=== PATIENT | male | born 1970 | race Caucasian/White ===

== ENCOUNTER 2021-12-24 11:06 | Observation (INO) | payer BC ==
[2021-12-24] MEDS ORDERED: Aspirin Chewable 81 MG TAB ONE (11:26)
[2021-12-24 11:52] LABS: #Eosinphils 0.1 thou/uL (0.0-0.7); #Lymphocytes 3.1 thou/uL (1.20-3.40); #Monocytes 1.1 thou/uL (0.11-0.59); #Neutrophils 7.5 thou/uL (1.40-6.50); %Basophils 0.1 % (0.0-1.0); %Eosinophils 0.9 % (0.0-10.0); %Lymphocytes 26.1 % (21.0-51.0); %Monocytes 9.5 % (0.0-10.0); %Neutrophils 63.3 % (42.0-75.0); Hemoglobin 20.1 g/dL (14.0-18.0); Mean Corpuscular HGB CONC 33.6 g/dL (32.0-36.0); Mean Corpuscular Hemoglobin 32.8 pg (27.0-31.0); Mean Corpuscular Volume 97.6 fL (78.0-98.0); Mean Platelet Volume 7.1 fL (7.4-10.4); Platelet Count 298 thou/uL (130-400); RBC Distribution Width 12.6 % (11.5-14.5); Red Blood Cell (RBC) Count 6.13 mill/uL (4.70-6.10); White Blood Cell (WBC) Count 11.8 thou/uL (4.8-10.8)
[2021-12-24 11:59] LABS: ALT (SGPT) 52 U/L (8-55); AST (SGOT) 35 U/L (5-34); Albumin 4.9 g/dL (3.5-5.0); Alkaline Phosphatase 74 U/L (40-110); Anion Gap 17 mmol/L (10-20); BUN (Urea Nitrogen) 17 mg/dL (8.4-25.7); Bilirubin, Total 1.1 mg/dL (0.2-1.2); Calc. Creatinine Clearance 0 mL/min (70-130); Calcium 10.5 mg/dL (7.8-10.44); Carbon Dioxide 24 mmol/L (22-29); Chloride 101 mmol/L (98-107); Estimated GFR 60; Globulin 3.4 g/dL (2.4-3.5); Glucose 114 mg/dL (70-105); Protein, Total 8.3 g/dL (6.0-8.3); Sodium 138 mmol/L (136-145)
[2021-12-24 12:41] LABS: SARS-CoV-2 NAA Rapid Test DETECTED (NotDetected)
[2021-12-24] MEDS ORDERED: Ondansetron PF 4 MG/2 ML Vial IVP PRN (13:33)
[2021-12-24] MEDS ORDERED: Senokot S 8.6-50 MG TAB PO PRN (13:33)
[2021-12-24] MEDS ORDERED: Acetaminophen 325 MG TAB PO PRN (13:33)
[2021-12-24] MEDS ORDERED: Nitroglycerin 0.4 MG TAB (25 Tab Bottle) SL PRN (13:37)
[2021-12-24 15:02] LABS: Troponin I Less than 0.010 ng/mL (< 0.028)
[2021-12-24] MEDS ORDERED: Iopamidol-370 76% 500 ML 1 ML ONE (15:35)
[2021-12-24] MEDS ORDERED: HYDROcodone/Acetaminophen 5/325 mg Tablet ONE (16:05)
[2021-12-24] MEDS: HYDROcodone/Acetaminophen 5/325 mg Tablet PO PRN ×3 (16:07→23:04)
[2021-12-24] MEDS: Sodium Chloride 0.9% 1,000 ML IV SCH (16:10)
[2021-12-24 16:11] VITALS: BMI 30.8
[2021-12-24] MEDS ORDERED: hydrALAZINE 20 MG/ML VIAL SLOW IVP PRN (17:58)
[2021-12-24] MEDS ORDERED: Amlodipine 5 MG TAB PO SCH (18:00)
[2021-12-24 18:06] LABS: Troponin I Less than 0.010 ng/mL (< 0.028)
[2021-12-24] MEDS ORDERED: Cyclobenzaprine 10 MG TAB PO SCH (22:45)
[2021-12-25 05:03] LABS: #Basophils 0.1 thou/uL (0.0-0.2); #Eosinphils 0.3 thou/uL (0.0-0.7); #Lymphocytes 4.1 thou/uL (1.20-3.40); #Monocytes 0.9 thou/uL (0.11-0.59); #Neutrophils 3.4 thou/uL (1.40-6.50); %Basophils 0.8 % (0.0-1.0); %Eosinophils 3.2 % (0.0-10.0); %Monocytes 10.1 % (0.0-10.0); %Neutrophils 38.9 % (42.0-75.0); Hemoglobin 17.4 g/dL (14.0-18.0); Mean Corpuscular HGB CONC 33.3 g/dL (32.0-36.0); Mean Corpuscular Hemoglobin 33.1 pg (27.0-31.0); Mean Corpuscular Volume 99.5 fL (78.0-98.0); Mean Platelet Volume 6.9 fL (7.4-10.4); Platelet Count 230 thou/uL (130-400); RBC Distribution Width 12.6 % (11.5-14.5); Red Blood Cell (RBC) Count 5.25 mill/uL (4.70-6.10); White Blood Cell (WBC) Count 8.8 thou/uL (4.8-10.8)
[2021-12-25] MEDS: Sodium Chloride 0.9% 1,000 ML IV SCH ×2 (05:21→18:14)
[2021-12-25 05:25] LABS: Anion Gap 10 mmol/L (10-20); BUN (Urea Nitrogen) 15 mg/dL (8.4-25.7); Calc. Creatinine Clearance 84 mL/min (70-130); Calcium 8.8 mg/dL (7.8-10.44); Carbon Dioxide 30 mmol/L (22-29); Cardiac Risk 5.9 (Less than 4.5); Chloride 103 mmol/L (98-107); Cholesterol 182 mg/dl (< 200 Desired); Estimated GFR 60; Glucose 95 mg/dL (70-105); HDL Cholesterol 31 mg/dL (>60 Neg Risk); LDL Cholesterol, Calculated 103 mg/dL; Potassium 4.3 mmol/L (3.5-5.1); Sodium 139 mmol/L (136-145); Triglycerides 239 mg/dL (Less than 150)
[2021-12-25] MEDS: HYDROcodone/Acetaminophen 5/325 mg Tablet PO PRN ×2 (05:26→13:00)
[2021-12-25] MEDS: Morphine 4 MG/ML VIAL SLOW IVP PRN ×2 (08:59→21:43)
[2021-12-25] MEDS: Aspirin Chewable 81 MG TAB PO SCH (08:59)
[2021-12-25] MEDS: Enoxaparin Sodium 40 MG/0.4 ML SYRINGE SC SCH (09:01)
[2021-12-25] MEDS ORDERED: Regadenoson 0.4 MG/5 ML SYRINGE ONE (14:35)
[2021-12-26] MEDS: Morphine 4 MG/ML VIAL SLOW IVP PRN ×3 (03:54→12:25)
[2021-12-26] MEDS: Aspirin Chewable 81 MG TAB PO SCH (07:50)
[2021-12-26] MEDS: Enoxaparin Sodium 40 MG/0.4 ML SYRINGE SC SCH (07:51)
[2021-12-26 12:06] VITALS: BP 142/78; TEMP 96
== END 2021-12-26 15:05 | disposition home or self-care (01) ==
LOC: ERS 11:06 → ERHOLD 13:20 → 2SW 17:43
PROVIDERS: ADMIT Hospitalist; ATTEND Hospitalist
DX: U07.1 COVID-19 (principal); J12.82 Pneumonia due to coronavirus disease 2019; D75.1 Secondary polycythemia; R07.89 Other chest pain; I11.9 Hypertensive heart disease without heart failure; E78.1 Pure hyperglyceridemia; Z87.891 Personal history of nicotine dependence
CPT/HCPCS: 36415; 71045; 71275; 78452; 80048; 80053; 80061; 84484; 85025; 85379; 93005; 93017; 93306; 94760; 96372; 96374; 96376; A9500; G0378; J1650; J2270; J2785; J7050; Q9967; U0002

== ENCOUNTER 2022-01-13 09:45 | Inpatient (IN) | payer BC ==
[2022-01-13 10:29] LABS: #Basophils 0.1 thou/uL (0.0-0.2); #Eosinphils 0.1 thou/uL (0.0-0.7); #Lymphocytes 2.7 thou/uL (1.20-3.40); #Monocytes 1.3 thou/uL (0.11-0.59); #Neutrophils 9.4 thou/uL (1.40-6.50); %Basophils 0.5 % (0.0-1.0); %Eosinophils 0.6 % (0.0-10.0); %Lymphocytes 20.1 % (21.0-51.0); %Monocytes 9.3 % (0.0-10.0); %Neutrophils 69.5 % (42.0-75.0); Hemoglobin 19.1 g/dL (14.0-18.0); Mean Corpuscular HGB CONC 33.8 g/dL (32.0-36.0); Mean Corpuscular Hemoglobin 32.7 pg (27.0-31.0); Mean Corpuscular Volume 96.7 fL (78.0-98.0); Mean Platelet Volume 7.8 fL (7.4-10.4); Platelet Count 285 thou/uL (130-400); RBC Distribution Width 12.5 % (11.5-14.5); Red Blood Cell (RBC) Count 5.84 mill/uL (4.70-6.10); White Blood Cell (WBC) Count 13.6 thou/uL (4.8-10.8)
[2022-01-13] MEDS ORDERED: Dextrose 50% Abboject 50 ML SYRINGE ONE (10:35)
[2022-01-13 10:49] LABS: ALT (SGPT) 67 U/L (8-55); AST (SGOT) 38 U/L (5-34); Albumin 4.8 g/dL (3.5-5.0); Alkaline Phosphatase 80 U/L (40-110); Anion Gap 17 mmol/L (10-20); BUN (Urea Nitrogen) 13 mg/dL (8.4-25.7); Bilirubin, Total 1.2 mg/dL (0.2-1.2); Calc. Creatinine Clearance 0 mL/min (70-130); Carbon Dioxide 27 mmol/L (22-29); Chloride 95 mmol/L (98-107); Estimated GFR 53; Globulin 3.5 g/dL (2.4-3.5); Glucose 135 mg/dL (70-105); Lipase 38 U/L (8-78); Potassium 4.1 mmol/L (3.5-5.1); Protein, Total 8.3 g/dL (6.0-8.3); Sodium 135 mmol/L (136-145)
[2022-01-13] MEDS ORDERED: Metoprolol Tartrate 5 MG/5 ML VIAL ONE (12:03)
[2022-01-13] MEDS ORDERED: Acetaminophen 500 MG TAB ONE (12:03)
[2022-01-13] MEDS ORDERED: diphenhydrAMINE 50 MG/ML VIAL ONE (12:03)
[2022-01-13] MEDS ORDERED: Metoclopramide HCl 10 MG/2 ML VIAL ONE (12:03)
[2022-01-13] MEDS ORDERED: Enoxaparin Sodium 100 MG/ML SYRINGE ONE (12:17)
[2022-01-13 13:34] LABS: Troponin I 0.029 ng/mL (< 0.028)
[2022-01-13] MEDS ORDERED: Ondansetron PF 4 MG/2 ML Vial IVP PRN ×2 (15:15→16:24)
[2022-01-13] MEDS ORDERED: Ondansetron ODT 4 MG TAB SL PRN (15:15)
[2022-01-13] MEDS ORDERED: Sodium Chloride 0.9% 1,000 ML IV SCH (15:30)
[2022-01-13 15:31] VITALS: BMI 32.2
[2022-01-13] MEDS ORDERED: Iopamidol-370 76% 500 ML 1 ML ONE (15:50)
[2022-01-13] MEDS ORDERED: Ondansetron ODT 4 MG TAB PO PRN (16:24)
[2022-01-13] MEDS ORDERED: Acetaminophen 325 MG TAB PO PRN (16:24)
[2022-01-13 16:43] LABS: Troponin I 0.021 ng/mL (< 0.028)
[2022-01-13] MEDS: HYDROcodone/Acetaminophen 5/325 mg Tablet PO PRN ×2 (18:32→23:24)
[2022-01-13] MEDS ORDERED: Aspirin 325 MG TAB PO SCH (21:00)
[2022-01-13] MEDS: Heparin 5,000 UNITS/ML VIAL SC SCH (21:01)
[2022-01-14 05:29] LABS: Anion Gap 12 mmol/L (10-20); BUN (Urea Nitrogen) 11 mg/dL (8.4-25.7); Calc. Creatinine Clearance 83 mL/min (70-130); Calcium 8.7 mg/dL (7.8-10.44); Carbon Dioxide 27 mmol/L (22-29); Chloride 103 mmol/L (98-107); Estimated GFR 60; Glucose 92 mg/dL (70-105); Potassium 3.7 mmol/L (3.5-5.1); Sodium 138 mmol/L (136-145)
[2022-01-14] MEDS ORDERED: Nicotine 7 MG PATCH TD SCH (05:45)
[2022-01-14] MEDS: Heparin 5,000 UNITS/ML VIAL SC SCH ×2 (05:57→15:03)
[2022-01-14] MEDS: HYDROcodone/Acetaminophen 5/325 mg Tablet PO PRN ×2 (05:58→11:29)
[2022-01-14 06:10] LABS: #Basophils 0.1 thou/uL (0.0-0.2); #Eosinphils 0.2 thou/uL (0.0-0.7); #Lymphocytes 3.1 thou/uL (1.20-3.40); #Monocytes 1.1 thou/uL (0.11-0.59); #Neutrophils 4.6 thou/uL (1.40-6.50); %Eosinophils 2.6 % (0.0-10.0); %Lymphocytes 34.1 % (21.0-51.0); %Monocytes 11.6 % (0.0-10.0); %Neutrophils 50.7 % (42.0-75.0); Hemoglobin 16.2 g/dL (14.0-18.0); Mean Corpuscular HGB CONC 34.9 g/dL (32.0-36.0); Mean Corpuscular Hemoglobin 33.9 pg (27.0-31.0); Mean Corpuscular Volume 97.3 fL (78.0-98.0); Mean Platelet Volume 7.4 fL (7.4-10.4); Platelet Count 224 thou/uL (130-400); RBC Distribution Width 12.4 % (11.5-14.5); Red Blood Cell (RBC) Count 4.77 mill/uL (4.70-6.10); White Blood Cell (WBC) Count 9.1 thou/uL (4.8-10.8)
[2022-01-14] MEDS ORDERED: Nicotine 21 MG PATCH TD SCH (09:00)
[2022-01-14] MEDS ORDERED: Aspirin 325 mg Enteric Coated Tablet PO SCH (09:00)
[2022-01-14 14:31] VITALS: BP 121/73; TEMP 98.4
== END 2022-01-14 15:15 | disposition home or self-care (01) | DRG 842 ==
LOC: ERS 09:45 → 2SW 12:22
PROVIDERS: ADMIT Family Medicine; ATTEND Family Medicine
DX: D45 Polycythemia vera (principal); N18.2 Chronic kidney disease, stage 2 (mild); Z20.822 Contact with and (suspected) exposure to COVID-19; F17.220 Nicotine dependence, chewing tobacco, uncomplicated; I12.9 Hypertensive chronic kidney disease with stage 1 through stage 4 chronic kidney disease, or unspecified chronic kidney disease; Z79.899 Other long term (current) drug therapy
CPT/HCPCS: 36415; 71045; 71275; 80048; 80053; 83690; 84484; 85025; 93005; 96361; 96372; 96374; 96375; 99195; J1200; J1644; J1650; J2765; J7050; J7999; Q9967; U0003; U0005